=== PATIENT | male | born 1995 | race Caucasian/White ===

== ENCOUNTER 2016-08-27 09:08 | Emergency (ER) | payer OTHER ==
[~2016-08-27] VITALS: Ht 172.7 cm; Wt 54.0 kg
[2016-08-27 09:11] VITALS: Ht 172.7 cm; Wt 54.0 kg
--- NOTE | 2016-08-27 10:14 | ERD ---
ER Documentation Chief Complaint Date/Time DATE: 08/27/16 TIME: 10:12 Chief Complaint RT GROIN , RT TESTICULAR PAIN X 2 DAYS HPI Patient is a 20-year-old male who is complaining of right testicular pain that he has had for 2 days. Pain is 5 out of 10 throbbing and nonradiating. He denies any dysuria, hematuria, increased urinary frequency, or purulent discharge from his penis. He denies any fever, nausea, vomiting, or diarrhea. He denies any recent unprotected sex. He has not taken any medications for pain. ROS All systems reviewed and are negative except as per history of present illness. Medications Home Meds Active Scripts Naproxen* (Naprosyn*) 500 Mg Tablet, 500 MG PO BID Y for PAIN AND/OR INFLAMMATION, #30 TAB Prov:JUANITO AMOS PA-C 08/27/16 Allergies Allergies: Coded Allergies: No Known Allergy (Unverified , 08/27/16) FmHx Family History: No diabetes Physical Exam Vitals Vital Signs Date Time Temp Pulse Resp B/P Pulse Ox O2 Delivery O2 Flow Rate FiO2 08/27/16 09:11 98.1 69 18 138/86 99 Physical Exam General: well developed, well nourished, alert, nontoxic, no distress Head: normocephalic, atraumatic Neck: Supple, nontender, no lymphadenopathy, no midline tenderness Respiratory: Clear to auscaultation bilaterally, speaks in full sentences, no use of accesory muscles or labored breathing, no rales, ronchi, or wheezing Cardiovascular: RRR, No murmurs GI: soft, non tender, non distended, negative murphys sign, negative mcburneys point tenderness, no cva tenderness bilaterally, no rebound or guarding : No inguinal lymphadenopathy, bilateral testicles nontender, no testicular swelling, no bleeding or drainage Results 24 hrs Laboratory Tests Test 08/27/16 10:26 Bedside Urine pH (LAB) 7.0 Bedside Urine Protein (LAB) Negative Bedside Urine Glucose (UA) Negative Bedside Urine Ketones (LAB) Negative Bedside Urine Blood Negative Bedside Urine Nitrite (LAB) Negative Bedside Urine Leukocyte Esterase (L Negative Procedures/MDM 20-year-old male presents with testicular pain. Vital signs are all within normal limits and he is well-appearing in no distress. Low suspicion for testicular torsion. Urinalysis and testicular ultrasound was ordered. Patient' s urine was negative and testicular ultrasound also unremarkable. Discharged with anti-inflammatories. Recommended this patient follow up with her primary care doctor within 48 hours or return to the emergency room for any worsening of symptoms. However this time I do believe there is suitable for outpatient management. I answered all their questions and they agreed with the plan and were discharged home. Departure Diagnosis: Primary Impression: Pain in testicle Condition: Stable JUANITO AMOS PA-C August 27, 2016 10:14
[2016-08-27 10:25] LABS: URINE BLOOD (Dip) POC Negative (NEGATIVE)
--- NOTE | 2016-08-27 10:55 | RADRPT ---
PROCEDURE: Scrotal ultrasound CLINICAL INDICATION: Right testicular pain TECHNIQUE: Scrotal ultrasound was performed with sagittal and transverse views. [place] scale and co trini imaging was performed. Images were reviewed on high resolution PACS monitors. COMPARISON: None available FINDINGS: The right testicle measures 4.4 x 2.5 x 2.7 cm. There is normal size and echogenicity and morphology of the right testicle with normal blood flow. The right epididymis is normal. No hydrocele is seen . Soft tissues are unremarkable. No mass or cyst or other abnormality is present. There is no evid ence for a varicocele. The left testicle measures 4.1 x 2.1 x 2.9 cm. There is normal size and echogenicity and morphology of the left testicle with normal blood flow. The left epididymis is normal. No hydrocele is seen. Soft tissues are unremarkable. No mass or cyst or other abnormality is present. There is no evidenc e for a varicocele. IMPRESSION: Unremarkable scrotal ultrasound. RPTAT: HH .Shweta Hamilton MD, Date Time Electronically viewed and signed by .Shweta Hamilton MD, MD on 08/27/2016 10:54 .G/
[2016-08-27] MEDS ORDERED: NAPR-260 PO (11:00)
== END 2016-08-27 11:05 | disposition home or self-care (01) ==
LOC: FTE 09:08
DX: N50.811 Right testicular pain (principal)
CPT/HCPCS: 76870; 81003; Z7502